=== PATIENT | female | born 2000 | race Two or more races ===

== ENCOUNTER 2018-09-24 16:14 | Emergency (ER) | payer OTHER ==
--- NOTE | 2018-09-24 17:26 | ER Document Report ---
ED General - General Chief Complaint: Needs psych referral Stated Complaint: PSYCH EVAL Time Seen by Provider: 09/24/18 16:52 Notes: Patient is a 18-year-old female with depression, anxiety and borderline personality disorder that presents to the emergency department for chief complaint of depressive symptoms and anxiety. Patient states that she was previously on medication, but was recently discharged from the , and is not been able to follow up with anybody, and she moved here from [place] and has not been able to see a psychiatrist or primary care physician. She states that she was on fluoxetine in the past does not recall her other medications. At this time she denies having any suicidal ideations, or any self-harm recently. She just overall feels depressed, decreased energy, and fatigue, and hopelessness, and also having anxiety. She denies having any pain or recent illnesses. Denies any homicidal ideations, auditory or visual hallucinations at this time. Past Medical History: Depression, anxiety, borderline personality disorder Past Surgical History: Denies surgical history Social History: Admits to smoking cigarettes daily, and occasional marijuana use , denies alcohol use Family History: Reviewed and noncontributory for presenting illness Allergies: Reviewed, see documented allergy list. REVIEW OF SYSTEMS: Other than noted above, the 12 point review of systems was reviewed with the patient and were negative, all pertinent findings are included in the HPI. PHYSICAL EXAMINATION: Vital signs reviewed, nursing noted reviewed. GENERAL: Well-appearing, well-nourished and in no acute distress. HEAD: Atraumatic, normocephalic. EYES: Eyes appear normal, extraocular movements intact, sclera anicteric, conjunctiva are normal. ENT: nares patent, oropharynx clear without exudates. Moist mucous membranes. NECK: Normal range of motion, supple without lymphadenopathy LUNGS: Breath sounds clear to auscultation bilaterally and equal. No wheezes rales or rhonchi. HEART: Regular rate and rhythm without murmurs ABDOMEN: Soft, nontender, normoactive bowel sounds. No rebound, guarding, or rigidity. No masses appreciated. EXTREMITIES: Nontender, good range of motion, no pitting or edema. NEUROLOGICAL: No focal neurological deficits. Moves all extremities spontaneously Motor and sensory grossly intact on exam. PSYCH: Normal mood, normal affect. SKIN: Warm, Dry, normal turgor, no rashes or lesions noted on exposed skin TRAVEL OUTSIDE OF THE [place] IN LAST 30 DAYS: No - Related Data Allergies/Adverse Reactions: acetaminophen [From Tylenol] Allergy (Verified 09/24/18 16:21) aspirin Allergy (Verified 09/24/18 16:21) Penicillins Allergy (Verified 09/24/18 16:21) Past Medical History - Social History Smoking Status: Current Some Day Smoker Chew tobacco use (# tins/day): No Drug Abuse: Marijuana Family History: Reviewed & Not Pertinent Patient has suicidal ideation: No Patient has homicidal ideation: No Renal/ Medical History: Denies: Hx Peritoneal Dialysis Physical Exam - Vital signs Vitals: Temp Pulse Resp BP Pulse Ox 98.6 F 74 12 113/68 100 09/24/18 16:35 09/24/18 16:35 09/24/18 16:35 09/24/18 16:35 09/24/18 16:35 Course - Re-evaluation Re-evalutation: Patient was seen and examined, vital signs reviewed, the patient overall appears well, she is actually quite pleasant, did not seem dysphoric on my history taking, I did consult the mental and behavioral health team, he did recommend starting the patient on fluoxetine 20 mg, and BuSpar 5 mg twice daily , patient was given outpatient resources to follow-up with including mobile crisis if needed, she is advised if her symptoms worsen or she does develop suicidal ideations to return to the emergency department if needed, which she was agreeable to. Also given follow-up with the social services aide in the emergency department, to follow-up with the patient in the morning. Patient was agreeable to this plan of care, and was quite grateful. - Vital Signs Vital signs: Temp Pulse Resp BP Pulse Ox 98.5 F 63 14 113/55 L 100 09/24/18 17:36 09/24/18 17:36 09/24/18 17:36 09/24/18 17:36 09/24/18 17:36 Discharge - Discharge Clinical Impression: Anxiety Depression Qualifiers: Depression Type: unspecified Qualified Code(s): F32.9 - Major depressive disorder, single episode, unspecified Condition: Stable Disposition: HOME, SELF-CARE Instructions: Anxiety ([facility]), Depression ([facility]) Additional Instructions: Please follow-up with resources provided if needed, if you are feeling urine crisis, please call mobile crisis, you can always return to the emergency department if needed as well. Please fill medications as prescribed, and call to find psychiatric follow-up prior to medications running out. Prescriptions: Buspirone HCl [Buspar 5 mg Tablet] 1 tab PO BID #15 tab Fluoxetine HCl [Prozac 20 mg Capsule] 20 mg PO DAILY #15 capsule Referrals: VIRGEN WINSLOW MD [COMMUNITY BASED STAFF] - Follow up in 3-5 days
[2018-09-24 17:36] VITALS: BP 113/55
== END 2018-09-24 17:36 | disposition home or self-care (01) ==
LOC: ER 16:14
DX: F32.9 Major depressive disorder, single episode, unspecified (principal); F41.9 Anxiety disorder, unspecified; F60.3 Borderline personality disorder; F17.210 Nicotine dependence, cigarettes, uncomplicated; F12.90 Cannabis use, unspecified, uncomplicated
CPT/HCPCS: 99283

== ENCOUNTER 2018-10-10 16:28 | Emergency (ER) | payer OTHER ==
--- NOTE | 2018-10-10 17:16 | ER Document Report ---
ED Medical Screen (RME) - General Chief Complaint: Vaginal Pain Stated Complaint: VAGINAL IRRITATION Time Seen by Provider: 10/10/18 17:15 Mode of Arrival: Ambulatory Information source: Patient Notes: 18 years old female presents today with vulvovaginal swelling and irritation. TRAVEL OUTSIDE OF THE [place] IN LAST 30 DAYS: No - Related Data Allergies/Adverse Reactions: acetaminophen [From Tylenol] Allergy (Verified 10/10/18 16:30) aspirin Allergy (Verified 10/10/18 16:30) Penicillins Allergy (Verified 10/10/18 16:30) Past Medical History - Social History Frequency of alcohol use: None Drug Abuse: Marijuana Renal/ Medical History: Denies: Hx Peritoneal Dialysis Psychiatric Medical History: Reports: Hx Depression Physical Exam - Vital signs Vitals: Temp Pulse Resp BP Pulse Ox 99.2 F 89 16 111/72 100 10/10/18 17:00 10/10/18 17:00 10/10/18 17:00 10/10/18 17:00 10/10/18 17:00 Course - Vital Signs Vital signs: Temp Pulse Resp BP Pulse Ox 99.2 F 89 16 111/72 100 10/10/18 17:00 10/10/18 17:00 10/10/18 17:00 10/10/18 17:00 10/10/18 17:00
--- NOTE | 2018-10-10 17:55 | ER Document Report ---
ED GI/ - General Chief Complaint: Vaginal Pain Stated Complaint: VAGINAL IRRITATION Time Seen by Provider: 10/10/18 17:15 Mode of Arrival: Ambulatory Information source: Patient Notes: 18-year-old female presents to ED for vaginal irritation vulvovaginal swelling since Monday. She states she used some Monistat last night and she still has pain and swelling. Patient is alert and oriented respirations regular and unlabored speaking in full sentences. TRAVEL OUTSIDE OF THE [place] IN LAST 30 DAYS: No - HPI Patient complains to provider of: Pelvic pain, Vaginal discharge, Vaginal pain Onset: Other - Monday Timing/Duration: Gradual Quality of pain: Pressure, Sharp Severity at maximum: Moderate Severity in ED: Moderate Pain Level: 4 Location: Pelvis, Vaginal, Vulvar Vaginal bleeding (Compared to normal period): None Associated symptoms: Vaginal discharge, Other - Rotation pressure to the vaginal vulval area with swelling Exacerbated by: Denies Relieved by: Denies Similar symptoms previously: Yes Recently seen / treated by doctor: No - Related Data Allergies/Adverse Reactions: acetaminophen [From Tylenol] Allergy (Verified 10/10/18 16:30) aspirin Allergy (Verified 10/10/18 16:30) Penicillins Allergy (Verified 10/10/18 16:30) Past Medical History - General Information source: Patient - Social History Smoking Status: Current Some Day Smoker Cigarette use (# per day): Yes - 1-2 cigarettes a week Smoking Education Provided: Yes - 4 minutes Frequency of alcohol use: None Drug Abuse: Marijuana Occupation: Customer services Lives with: Family Family History: Reviewed & Not Pertinent Patient has suicidal ideation: No Patient has homicidal ideation: No - Past Medical History Cardiac Medical History: Reports: None Pulmonary Medical History: Reports: None EENT Medical History: Reports: None Neurological Medical History: Reports: None Endocrine Medical History: Reports: None Renal/ Medical History: Reports: None Malignancy Medical History: Reports: None GI Medical History: Reports: None Musculoskeletal Medical History: Reports None Psychiatric Medical History: Reports: Hx Borderline Personality Disorder, Hx Depression Traumatic Medical History: Reports: None Infectious Medical History: Reports: None Surgical Hx: Negative Past Surgical History: Reports: None Review of Systems - Review of Systems Constitutional: No symptoms reported EENT: No symptoms reported Cardiovascular: No symptoms reported Respiratory: No symptoms reported Gastrointestinal: No symptoms reported Genitourinary: No symptoms reported Female Genitourinary: Vaginal discharge, Other - Vaginal vulval pain and swelling Musculoskeletal: No symptoms reported Skin: No symptoms reported Hematologic/Lymphatic: No symptoms reported Neurological/Psychological: No symptoms reported -: Yes All other systems reviewed and negative Physical Exam - Vital signs Vitals: Temp Pulse Resp BP Pulse Ox 99.2 F 89 16 111/72 100 10/10/18 17:00 10/10/18 17:00 10/10/18 17:00 10/10/18 17:00 10/10/18 17:00 Interpretation: Normal - General General appearance: Appears well, Alert - HEENT Head: Normocephalic, Atraumatic Eyes: Normal Pupils: PERRL - Respiratory Respiratory status: No respiratory distress Chest status: Nontender Breath sounds: Normal Chest palpation: Normal - Cardiovascular Rhythm: Regular Heart sounds: Normal auscultation Murmur: No - Abdominal Inspection: Normal Distension: No distension Bowel sounds: Normal Tenderness: Nontender Organomegaly: No organomegaly - Genitourinary External exam: Normal Speculum exam: Vaginal discharge - Thick clumpy whitish green drainage Vaginal bleeding: None Bimanuel exam: Cervical motion tender - Back Back: Normal, Nontender - Extremities General upper extremity: Normal inspection, Nontender, Normal color, Normal ROM , Normal temperature General lower extremity: Normal inspection, Nontender, Normal color, Normal ROM , Normal temperature, Normal weight bearing. No: Silva's sign - Neurological Neuro grossly intact: Yes Cognition: Normal Orientation: AAOx4 [place] Coma Scale Eye Opening: Spontaneous [place] Coma Scale Verbal: Oriented [place] Coma Scale Motor: Obeys Commands [place] Coma Scale Total: 15 Speech: Normal Motor strength normal: LUE, RUE, LLE, RLE Sensory: Normal - Psychological Associated symptoms: Normal affect, Normal mood - Skin Skin Temperature: Warm Skin Moisture: Dry Skin Color: Normal Course - Vital Signs Vital signs: Temp Pulse Resp BP Pulse Ox 98.6 F 88 18 102/65 99 10/10/18 20:44 10/10/18 20:44 10/10/18 20:44 10/10/18 20:44 10/10/18 20:44 - Laboratory Laboratory results interpreted by me: 10/10/18 18:05 Urine Urobilinogen 4.0 H Discharge - Discharge Clinical Impression: Bacterial vaginosis Vaginitis Qualifiers: Chronicity: acute Qualified Code(s): N76.0 - Acute vaginitis Condition: Stable Disposition: HOME, SELF-CARE Instructions: Family Physicians / Practices Additional Instructions: VAGINITIS: Your exam shows that you have vaginitis, a vaginal infection. The infection can be caused by a many different organisms, including trichomonas or Gardnerella. The usual symptoms are vaginal irritation and discharge. The treatment is usually antibiotics such as Flagyl. Laboratory tests can determine which germ is responsible. Use the medication as prescribed. Because this infection can be transmitted sexually, your sexual partner may need to be checked and treated also. If your physician has not discussed this with you, please check before resuming sexual relations. If a culture shows gonorrhea or chlamydia, the infection must be reported to the health department. Call the doctor if you develop pelvic pain, fever, or problems with urination, or if you don't improve as expected. VAGINOSIS, BACTERIAL: Your exam shows you have bacterial vaginosis. This condition is due to an overgrowth of bacteria in the vagina. Symptoms may include vaginal itching or pain, a smelly discharge, and sometimes burning with urination. Normally this is not transmitted by sexual contact. Vaginosis can be treated with oral or topical antibiotics. Metronidazole ( Flagyl) pills are usually effective. Topical vaginal creams include Cleocin and Metro-Gel. You should avoid sexual contact until your symptoms are all better. Call the doctor if you develop pelvic pain, fever, or problems with urination, or if you don't improve as expected. ANTIBIOTIC THERAPY: You have been given an antibiotic prescription. It's important that you take all the medication, unless instructed otherwise by your physician. Failure to complete the entire course can result in relapse of your condition. Common side effects of antibiotics include nausea, intestinal cramping, or diarrhea. Women may develop vaginal yeast infections, and babies can get yeast (thrush) in the mouth following the use of antibiotics. Contact your physician if you develop significant side effects from this medication. Allergy to this antibiotic can result in hives, wheezing, faintness, or itching. If symptoms of allergy occur, stop the medication and call the doctor. DOXYCYCLINE: Doxycycline (Vibramycin, Doryx) is an antibiotic of the tetracycline family. This type of drug is useful for infections of the respiratory tract and genital tract, and is sometimes used for intestinal infections. Unlike most tetracyclines, doxycycline can be taken with food. It is longer acting, and (usually) less prone to side effects than regular tetracycline. Tetracycline antibiotics can stain immature teeth and SHOULD NOT BE TAKEN BY CHILDREN, NURSING MOTHERS, OR WOMEN. Tetracyclines can make you more prone to sunburn. Abdominal cramping, nausea, and diarrhea are occasional side effects. Women may experience vaginal yeast infections. Call the doctor at once if you develop hives, itching, shortness of breath , or lightheadedness. AZITHROMYCIN: Azithromycin (Zithromax) is a broad spectrum antibiotic in the same class as erythromycin. It can treat a variety of bacterial infections, but is most frequently used for respiratory infections. Azithromycin is extremely long-lasting. It accumulates in body tissues and continues to kill bacteria for many days. In order to improve absorption, Azithromycin should be taken at least one hour before or two hours after a meal. It does not have the same strong tendency to upset the stomach as erythromycin and is usually very well tolerated. Patients who have had a rash or other true allergic reactions to erythromycin should not take this medication. Call if you develop gastrointestinal distress, severe diarrhea, rash, hives, itching, or shortness of breath. METRONIDAZOLE: Metronidazole (Flagyl) has been prescribed. This medication is used to kill a type of bacteria called anaerobes, and protozoan parasites such as trichomonas and Giardia. Flagyl often causes a metallic taste in the mouth and mild nausea. Do not use alcohol in any form with Flagyl (including alcohol in medication elixirs). Flagyl interacts with alcohol to cause flushing, palpitations, headache, stomach cramps, and vomiting. Do not use Flagyl if you are taking Antabuse (disulfiram). Call the doctor at once if you develop rash, shortness of breath, itching, or lightheadedness. Your gonorrhea and Chlamydia test will not be completed for another hour to an hour and a half. Please call [phone] that time for the results of your test. If that is positive then you and your partner need to both be treated for a week to 10 days before you can have sexual intercourse again to prevent reinfection. I have given you 1 dose of Flagyl and doxycycline in the emergency room. If I tell you that your positive you need to fill your prescription for azithromycin and doxycycline and take them as instructed. If your tests are negative or positive you still need to take the Flagyl as prescribed FOLLOW-UP CARE: If you have been referred to a physician for follow-up care, call the physician s office for an appointment as you were instructed or within the next two days. If you experience worsening or a significant change in your symptoms, notify the physician immediately or return to the Emergency Department at any time for re-evaluation. Prescriptions: Azithromycin [Zithromax] 1,000 mg PO ONCE PRN #4 tablet PRN Reason: Doxycycline Hyclate [Vibramycin 100 mg Tablet] 100 mg PO BID #14 tablet Metronidazole [Flagyl 500 mg Tablet] 500 mg PO BID #14 tablet
[2018-10-10 18:49] LABS: APPEARANCE,URINE SLIGHTLY-CLOUDY; BILIRUBIN,URINE NEGATIVE (NEGATIVE); COLOR,URINE YELLOW; GLUCOSE, URINE NEGATIVE (NEGATIVE); KETONES,URINE NEGATIVE (NEGATIVE); LEUKOCYTE ESTERASE,URINE NEGATIVE (NEGATIVE); NITRITE,URINE NEGATIVE (NEGATIVE); PROTEIN,URINE NEGATIVE (NEGATIVE); URINE SPECIFIC GRAVITY 1.027
[2018-10-10 19:13] LABS: YEAST (WET MOUNT) NO YEAST SEEN
[2018-10-10 19:14] LABS: BACTERIA (WET MOUNT) 4+ BACTERIA SEEN; EPITHELIALS (WET MOUNT) 4+ EPITHELIALS SEEN; RBCS (WET MOUNT) RARE RBCS SEEN; T.VAGINALIS (WET MOUNT) NO TRICHOMONAS SEEN; WBCS (WET MOUNT) 3+ WBCS SEEN
[2018-10-10 20:15] LABS: CHLAM PCR NOT DETECTED (NOT DETECT); GON PCR NOT DETECTED (NOT DETECT)
[2018-10-10] MEDS ORDERED: METRONIDAZOLE 500 MG TABLET PO ONE (20:21)
[2018-10-10] MEDS ORDERED: DOXYCYCLINE HYCLATE 100 MG TABLET PO ONE (20:21)
[2018-10-10 20:44] VITALS: BP 102/65
== END 2018-10-10 20:44 | disposition home or self-care (01) ==
LOC: ER 16:28
DX: N76.0 Acute vaginitis (principal); B96.89 Other specified bacterial agents as the cause of diseases classified elsewhere; R10.2 Pelvic and perineal pain; F17.210 Nicotine dependence, cigarettes, uncomplicated; Z71.6 Tobacco abuse counseling; Z88.6 Allergy status to analgesic agent; Z88.0 Allergy status to penicillin
CPT/HCPCS: 81001; 81025; 87210; 87491; 87591; 99283; 99406

== ENCOUNTER 2019-05-23 12:49 | Emergency (ER) | payer OTHER ==
[2019-05-23 13:06] VITALS: BP 95/53
[2019-05-23] MEDS ORDERED: IBUPROFEN 600 MG TABLET PO ONE (13:31)
--- NOTE | 2019-05-23 13:33 | ER Document Report ---
HPI - HPI Time Seen by Provider: 05/23/19 13:06 Pain Level: 5 Notes: Patient is a 18-year-old female presented to the emergency department chief complaint of dog bite to her right hand. Patient reports she was playing with her friends dog when the dog accidentally bit her instead of latching onto the rope she was playing with the dog with. She reports this occurred just prior to arrival. She reports her last tetanus shot was about 1 year ago. She denies any other symptoms. - REPRODUCTIVE Reproductive: DENIES: : Past Medical History - General Information source: Patient - Social History Smoking Status: Never Smoker Frequency of alcohol use: None Drug Abuse: None Family History: Reviewed & Not Pertinent Renal/ Medical History: Denies: Hx Peritoneal Dialysis Psychiatric Medical History: Reports: Hx Borderline Personality Disorder, Hx Depression Surgical Hx: Negative - Immunizations Immunizations up to date: Yes Vertical Provider Document - CONSTITUTIONAL Notes: PHYSICAL EXAMINATION: GENERAL: Well-appearing, well-nourished and in no acute distress. HEAD: Atraumatic, normocephalic. EYES: Pupils equal round extraocular movements intact, conjunctiva are normal. ENT: Nares patent NECK: Normal range of motion LUNGS: No respiratory distress Musculoskeletal: Normal range of motion NEUROLOGICAL: Normal speech, normal gait. PSYCH: Normal mood, normal affect. SKIN: Multiple superficial bite escobedo to right hand, normal motor and sensation to hand, patient able to fully extend and flex all digits. Cap refill less than 3 seconds, strong radial pulse. - INFECTION CONTROL TRAVEL OUTSIDE OF THE [place] IN LAST 30 DAYS: No Course - Re-evaluation Re-evalutation: Patient's physical examination is consistent with acute dog bite. The dog was known to her and the immunizations were up-to-date. No indication for rabies prophylaxis. Patient will be started on Augmentin and. Tetanus already up-to-date. Wounds were copiously cleaned, irrigated and then dressed. Patient given very strict ED return precautions and guidelines to watch for infection. Patient verbalized understanding and agreement with same. The patient's emergency department workup and current diagnosis were explained to the patient and or family. Follow-up instructions were provided. Medications if prescribed were discussed. Instructions for when to return to the emergency department including specific worrisome symptoms were discussed with the patient and/or family. - Vital Signs Vital signs: Temp Pulse Resp BP Pulse Ox 98.4 F 93 20 95/53 L 99 05/23/19 13:05 05/23/19 13:05 05/23/19 13:05 05/23/19 13:05 05/23/19 13:05 Discharge - Discharge Clinical Impression: Dog bite Qualifiers: Encounter type: initial encounter Qualified Code(s): W54.0XXA - Bitten by dog, initial encounter Condition: Stable Disposition: HOME, SELF-CARE Additional Instructions: Please monitor very closely for any signs of infection from your dog bite including spreading redness from the area, pus from the wound, or worsening pain. Clean the area twice daily with soap and water and then apply topical antibiotic ointment. Please take all the antibiotics that you were prescribed until they are gone. Follow-up with your primary care physician as needed. Prescriptions: Clindamycin HCl 300 mg PO TID #21 capsule Doxycycline Hyclate 100 mg PO BID #14 capsule [facility]errals: [facility] [[facility] Provider] - Follow up as needed
--- NOTE | 2019-05-23 14:13 | RADIOLOGY REPORT (SQ) ---
EXAM DESCRIPTION: HAND RIGHT 3 VIEWS COMPLETED DATE/TIME: 05/23/2019 2:05 pm REASON FOR STUDY: dog bite COMPARISON: None. EXAM PARAMETERS: NUMBER OF VIEWS: Three views. TECHNIQUE: AP, lateral and oblique radiographic images acquired of the right hand. LIMITATIONS: None. FINDINGS: MINERALIZATION: Normal. BONES: No acute fracture or dislocation. No bony puncture wound along the 2nd digit from dog bite. No worrisome bone lesions. JOINTS: No effusions. SOFT TISSUES: No soft tissue swelling. No foreign body. OTHER: No other significant finding. IMPRESSION: No bony puncture wound along the 2nd digit from dog bite. No worrisome bony lesions TECHNICAL DOCUMENTATION: JOB ID: [id number] [employer]- All Rights Reserved Reading location - IP/workstation name: [email or web address]
== END 2019-05-23 14:30 | disposition home or self-care (01) ==
LOC: ER 12:49
DX: S61.451A Open bite of right hand, initial encounter (principal); W54.0XXA Bitten by dog, initial encounter
CPT/HCPCS: 99283

== ENCOUNTER → 2020-03-13 | Outpatient (CLI) | payer OTHER ==
--- NOTE | 2020-03-13 11:42 | RADIOLOGY REPORT (SQ) ---
EXAM DESCRIPTION: U/S NON-OB PELVIS TV W/O DOP IMAGES COMPLETED DATE/TIME: 03/13/2020 11:33 am REASON FOR STUDY: N71.9 INFLAMMATORY DISEASE OF UTERUS, UNSPECIFIED N71.9 INFLAMMATORY DISEASE OF U TERUS, UNSPECIFIED COMPARISON: None. TECHNIQUE: Dynamic and static grayscale images acquired of the pelvis via transabdominal and transva ginal approach and recorded on PACS. Additional selected color Doppler and spectral images recorded. LIMITATIONS: None. FINDINGS: UTERUS: Contour normal. No mass. ENDOMETRIAL STRIPE: No focal or generalized thickening. No masses. CERVIX: No nabothian cysts. RIGHT OVARY AND DOPPLER: Normal size. No worrisome masses. Normal arterial vascular flow without evid ence for torsion. LEFT OVARY AND DOPPLER: Normal size. No worrisome masses. Normal arterial vascular flow without evid ence for torsion. FREE FLUID: None noted. OTHER: No other significant finding. MEASUREMENTS: UTERUS: 7.1 x 3.3 x 3.3 cm. ENDOMETRIAL STRIPE: 6.8 mm. RIGHT OVARY: 2.7 x 1.6 x 1.9 cm. LEFT OVARY: 3.1 x 1.9 x 1.8 cm. IMPRESSION: NORMAL PELVIC ULTRASOUND BY TRANSABDOMINAL AND TRANSVAGINAL TECHNIQUE. TECHNICAL DOCUMENTATION: JOB ID: [id number] [employer]- All Rights Reserved Reading location - IP/workstation name: [email or web address]
== END ==
LOC: RAD 09:57
PROVIDERS: ATTEND Physician Assistant
DX: N71.9 Inflammatory disease of uterus, unspecified (principal)
CPT/HCPCS: 76830